=== PATIENT | male | born 1970 | race African-American/Black ===

== ENCOUNTER 2018-07-10 14:02 | Emergency (ER) | payer SELFPAY ==
[~2018-07-10] VITALS: Ht 182.9 cm; Wt 98.0 kg
--- NOTE | 2018-07-10 14:21 | NUR ---
Pt to ER today seeking help for increasing depression, ETOH abuse & today SI w/ plan to jump off of a bridge. Has hx of depression & PTSD. Relapsed on alcohol several wks ago & is intoxicated at this time. Hx past suicide attempt with pills. Unable to secure room due to location. Pt's belongings removed, labeled & locked in locker. EMT is observing pt until appropriate psych room available. Pt is crying but cooperative so far.
[2018-07-10 14:52] LABS: ALANINE AMINOTRANSFERASE 57 U/L (12-78); ALBUMIN 4.5 g/dL (3.4-5.0); ANION GAP 12 mmol/L (5-15); CALCIUM 8.4 mg/dL (8.5-10.1); CHLORIDE 105 mmol/L (98-107); CREATININE 1.11 mg/dL (0.7-1.3); SALICYLATE LEVEL < 1.7 mg/dL (2.8-20.0)
[2018-07-10 14:53] LABS: MEAN CORPUSCULAR HEMOGLOBIN 30.3 pg (27.5-34.5); MEAN CORPUSCULAR HGB CONC 33.5 g/dL (33.2-36.2); MEAN CORPUSCULAR VOLUME 90.2 fL (81-97); MEAN PLATELET VOLUME 8.3 fL (7.4-10.4); PLATELET COUNT 249 x10^3/uL (130-400); RED BLOOD COUNT 4.83 x10^6/uL (4.38-5.82); RED CELL DISTRIBUTION WIDTH 17.1 % (9.4-14.8)
[2018-07-10 14:54] LABS: ALKALINE PHOSPHATASE 102 U/L (45-117); BILIRUBIN,TOTAL 0.4 mg/dL (0.2-1.0); TOTAL PROTEIN 8.6 g/dL (6.4-8.2)
[2018-07-10 14:56] LABS: ACETAMINOPHEN < 2 mcg/mL (10-30)
--- NOTE | 2018-07-10 15:00 | NUR ---
REPORT RECEIVED FROM JESSE MICHELLE. PATIENT A LEGAL HOLD FOR SUICIDAL IDEATION. ROOM SECURED W/ PSYCH PRECAUTIONS 1:1 SITTER AT BEDSIDE PATIENT RESTING COMFORTABLY ON GURNEY W/ SIDE RAILS UP. ALERT/ORIENTED. REPORTS HE FEELS SUICIDAL HE "HAS HAD TOO MUCH HAPPEN ALL AT ONCE." ADMITS TO DRINKING HEAVILLY OF LATE. DENIES OTHER DRUGS/ILLICITS. HELPED UP TO RESTROOM TO VOID FOR UDS. AMBULATED W/OUT DIFFICULTY TO RESTROOM. UNABLE TO VOID. GIVEN ADDITIONAL WATER
[2018-07-10 15:05] LABS: MD YES
[2018-07-10 15:16] LABS: ANISOCYTOSIS 1+; BASOS#(MANUAL) 0.05 x10^3/uL (0-0.1); BASOS% (MANUAL) 1 % (0-1); EOS#(MANUAL) 0.11 x10^3/uL (0.0-0.4); EOS% (MANUAL) 2 % (1-7); LYMPH#(MANUAL) 1.84 x10^3/uL (1-3.4); LYMPHS% (MANUAL) 34 % (22-44); MONOS% (MANUAL) 13 % (2-9); SEGS% (MANUAL) 50 % (42-75)
[2018-07-10 15:17] LABS: <PLATELET ESTIMATE> ADEQUATE; <PLT MORPHOLOGY> NORMAL PLT MORPH
--- NOTE | 2018-07-10 16:10 | NUR ---
PATIENT A LEGAL HOLD FOR SUICIDAL IDEATION. ROOM SECURED W/ PSYCH PRECAUTIONS 1:1 SITTER AT BEDSIDE Patient reports anxiety-provider asked for prn. Provider would like to wait as patient too intoxicated at the moment. Patient updated. Dinner tray ordered
--- NOTE | 2018-07-10 17:50 | NUR ---
PATIENT A LEGAL HOLD FOR SUICIDAL IDEATION. ROOM SECURED W/ PSYCH PRECAUTIONS 1:1 SITTER AT BEDSIDE
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
--- NOTE | 2018-07-10 18:20 | NUR ---
PATIENT A LEGAL HOLD FOR SUICIDAL IDEATION. ROOM SECURED W/ PSYCH PRECAUTIONS 1:1 SITTER AT BEDSIDE
[2018-07-10 18:34] LABS: AMPHETAMINE SCREEN, URINE Negative (Negative); BARBITURATE SCREEN, URINE Negative (Negative); BENZODIAZEPINE SCREEN, URINE Negative (Negative); CANNABINOID SCREEN, URINE Positive (Negative); COCAINE SCREEN, URINE Negative (Negative); METHADONE SCREEN, URINE Negative (Negative); OPIATE SCREEN, URINE Negative (Negative)
--- NOTE | 2018-07-10 19:20 | NUR ---
PATIENT A LEGAL HOLD FOR SUICIDAL IDEATION. ROOM SECURED W/ PSYCH PRECAUTIONS 1:1 SITTER AT BEDSIDE REPORT TO CHAPO MICHELLE
--- NOTE | 2018-07-10 20:07 | NUR ---
PT LYING IN [facility], STATES, "I'M TRYING TO SLEEP BUT IT'S HARD BECAUSE OF MY ANXIETY." RV'WD POC WITH PT. 3P'S ADDRESSED. BREATHALYZER 0.119 AT THIS TIME; WILL RE-ASSESS.
[2018-07-10] MEDS ORDERED: LORazepam 1MG TABLET ONE (20:48)
--- NOTE | 2018-07-10 20:57 | NUR ---
PT BECAME DIAPHORETIC, NAUSEOUS, AND ANXIOUS. STATES, "IT'S FROM THE DRINKING." PT REQUESTING SOMETHING TO HELP HIM RELAX. ERP NOTIFIED, PT MEDICATED WITH PO ATIVAN PER ORDERS.
[2018-07-10] MEDS ORDERED: LORazepam 1MG TABLET PO ONE (21:00)
--- NOTE | 2018-07-10 21:48 | NUR ---
PT WAS TRANSFERRED TO HOSPITAL BED FOR COMFORT. RESTING QUIETLY, AWAKENS EASILY.
[2018-07-10] MEDS ORDERED: MIRTAZAPINE PO (23:59)
[2018-07-10] MEDS ORDERED: PROZAC PO (23:59)
--- NOTE | 2018-07-11 00:07 | NUR ---
PT RESTING QUIETLY IN [facility]. AWAKENS TO PHYSICAL STIMULATION. BREALTHALYZER NOW 0.071.
--- NOTE | 2018-07-11 00:34 | NUR ---
ERP WAS IN TO SPEAK WITH PT.
[2018-07-11 01:00] VITALS: BP 187/108
--- NOTE | 2018-07-11 01:02 | NUR ---
ALL BELONGINGS RETURNED TO PT. PT CALLING A FRIEND AT THIS TIME.
--- NOTE | 2018-07-11 01:09 | NUR ---
D/C INSTRUCTIONS & F/U APPT'S RV'WD WITH PT, HE VERBALIZES UNDERSTANDING. CAB VOUCHER PROVIDED FOR PT TO GET TO FRIEND'S HOUSE. PT AMBULATED OUT OF ED WITHOUT DIFFICULTY.
== END 2018-07-11 01:11 | disposition home or self-care (01) ==
LOC: ED 07-11 00:18
DX: F32.9 Major depressive disorder, single episode, unspecified (principal); F10.220 Alcohol dependence with intoxication, uncomplicated
CPT/HCPCS: 36415; 80053; 80307; 80329; 85025; 99284; G0480